=== PATIENT | male | born 1950 | race Caucasian/White ===

== ENCOUNTER → 2021-02-19 | Outpatient (CLI) | payer OTHER ==
[~2021-02-19] MED LIST: ACETAMINOPHEN-1 EAC1; ALPRAZOLAM0.5 M1 PO; CLONIDINE HCL0.2 M2 PO; CLORAZEPATE D3.75 M1 PO; CYCLOBENZAPRINE5 MG; DILTIAZEM 24HR180 MG; FENTANYL PATCH75 MCG; FOLIC ACID0.4 MG; HYDRALAZINE; HYDROCODON-ACE1 EAC5; HYDROCODON-ACE1 EAC7 PO; VITAMINE B-1100 MG; [UNRECOGNIZED DRUG - OTHER]; [UNRECOGNIZED DRUG - OTHER] PO
[2021-02-19 08:18] LABS: ALBUMIN 3.7 g/dL (3.4-5.0); CALCIUM 9.5 mg/dL (8.5-10.1); CREATININE 2.4 mg/dL (0.6-1.3); POTASSIUM 3.7 mmol/L (3.5-5.1); TOTAL BILIRUBIN 0.6 mg/dL (<0.1-1.0); TOTAL PROTEIN 7.7 g/dL (6.4-8.2)
== END ==
LOC: M.LAB 07:49
PROVIDERS: ATTEND Internal Medicine
DX: N17.9 Acute kidney failure, unspecified (principal)